=== PATIENT | female | born 1995 | race Caucasian/White ===

== ENCOUNTER 2018-03-27 02:36 | Inpatient (IN) | payer MEDICAID, BC ==
[2018-03-27 04:17] LABS: ADD MAN DIFF? NO
[2018-03-27 04:19] LABS: ABNORMAL IP MESSAGE 1; BASOPHIL # 0.1 10^3/ul (0.0-0.1); BASOPHILS % 0.4 % (0.0-2.0); EOSINOPHILS # 0.1 10^3/ul (0.0-0.5); EOSINOPHILS % 0.5 % (0.0-7.0); HEMATOCRIT 38.6 % (37.0-47.0); HEMOGLOBIN 13.6 g/dl (12.0-16.0); LYMPHOCYTES # 2.4 10^3/ul (0.8-2.9); MEAN CORPUSCULAR HEMOGLOBIN 32.1 pg (29.0-33.0); MEAN CORPUSCULAR HGB CONC 35.2 g/dl (32.0-37.0); MEAN PLATELET VOLUME 10.2 fl (7.4-10.4); MONOCYTE # 1.6 10^3/ul (0.3-0.9); MONOCYTES % 7.5 % (0.0-11.0); NEUTROPHIL # 17.5 10^3/ul (1.6-7.5); NEUTROPHILS % 79.6 % (39.0-77.0); PLATELET COUNT 262 10^3/UL (140-415); RED BLOOD COUNT 4.24 10^6/ul (4.20-5.40); RED CELL DISTRIBUTION WIDTH 11.4 % (11.5-14.5)
[2018-03-27 04:34] LABS: ALANINE AMINOTRANSFERASE 17 IU/L (13-69); ALBUMIN 3.8 g/dl (3.3-4.9); ALBUMIN/GLOBULIN RATIO 1.15; ALKALINE PHOSPHATASE 107 IU/L (42-121); ANION GAP 12 (5-13); ASPARTATE AMINO TRANSFERASE 24 IU/L (15-46); BILIRUBIN,INDIRECT 0.3 mg/dl (0-1.1); BILIRUBIN,TOTAL 0.3 mg/dl (0.2-1.3); BLOOD UREA NITROGEN 11 mg/dl (7-20); CARBON DIOXIDE 31 mmol/L (21-31); CHLORIDE 97 mmol/L (97-110); CREATININE 0.69 mg/dl (0.44-1.00); Estimated GFR > 60 mL/min (>60); GLUCOSE 80 mg/dl (70-220); LIPASE 16 U/L (23-300); POTASSIUM 3.5 mmol/L (3.5-5.1); SODIUM 140 mmol/L (135-144); TOTAL PROTEIN 7.1 g/dl (6.1-8.1)
[2018-03-27 04:42] LABS: POSITIVE DIFF @See below
[2018-03-27] MEDS: PIPER-TAZO 3.375 GM IV (PMX) 100 ML IVPB ×3 (04:42→17:32)
[2018-03-27] MEDS: VANCOMYCIN 1 GM (PMX) 250 ML IVPB (04:43)
[2018-03-27] MEDS: SOD CHLORIDE 0.9% 1,000 ML IV ×3 (04:43→07:22)
[2018-03-27] MEDS: morphine 2 MG INJ IV ×3 (05:54→18:49)
[2018-03-27] MEDS: ONDANSETRON 4 MG INJ IV (05:54)
[2018-03-27] MEDS ORDERED: VANCOMYCIN IV PER PHARMACY XX (06:00)
[2018-03-27] MEDS ORDERED: ONDANSETRON 4 MG INJ IV (06:00)
[2018-03-27] MEDS ORDERED: NACL 0.9% 3 ML SYG IV (06:00)
[2018-03-27] MEDS ORDERED: HYDROCODONE/APAP (5/325) TAB PO (06:00)
[2018-03-27 06:15] LABS: URINE BLOOD (Dip) POC Trace-lysed (NEGATIVE); URINE GLUCOSE (Dip) POC Negative (NEGATIVE); URINE KETONES (Dip) POC Negative (NEGATIVE); URINE LEUKOCYTE EST (Dip) POC Negative (NEGATIVE); URINE NITRITE (Dip) POC Negative (NEGATIVE); URINE TOTAL PROTEIN POC 1+ (NEGATIVE)
[2018-03-27 06:37] LABS: ADD UMIC YES; UR ASCORBIC ACID NEGATIVE (NEGATIVE); UR BILIRUBIN (Dip) NEGATIVE (NEGATIVE); UR BLOOD (Dip) 1+ mg/dL (NEGATIVE); UR CLARITY CLEAR (CLEAR); UR COLOR YELLOW (YELLOW); UR GLUCOSE (Dip) NEGATIVE (NEGATIVE); UR KETONES (Dip) NEGATIVE (NEGATIVE); UR LEUKOCYTE ESTERASE (Dip) NEGATIVE Leu/ul (NEGATIVE); UR NITRITE (Dip) NEGATIVE (NEGATIVE); UR RBC 3 /HPF (0-5); UR SPECIFIC GRAVITY (Dip) 1.016 (1.003-1.030); UR TOTAL PROTEIN (Dip) NEGATIVE (NEGATIVE); UR UROBILINOGEN (Dip) NEGATIVE (NEGATIVE); UR WBC 3 /HPF (0-5)
[2018-03-27 07:21] LABS: BARBITURATES Negative (NEGATIVE); BENZODIAZEPINES Negative (NEGATIVE); CANNABINOIDS Positive (NEGATIVE); COCAINE Negative (NEGATIVE); OPIATES Negative (NEGATIVE)
[2018-03-27 07:47] LABS: AMPHETAMINE/METHAMPHETAMINE POSITIVE (NEGATIVE)
[2018-03-27] MEDS: ACETAMINOPHEN 325 MG TAB PO (09:10)
[2018-03-27] MEDS: VANCOMYCIN 1 GM 250 ML IVPB ×2 (12:47→21:12)
== END 2018-03-27 22:50 | disposition left against medical advice (07) | DRG 832 ==
LOC: PP2 09:34 → E/R 02:36 → PP2 05:40
DX: O99.321 Drug use complicating pregnancy, first trimester (principal); L03.211 Cellulitis of face; O26.891 Other specified pregnancy related conditions, first trimester; F15.90 Other stimulant use, unspecified, uncomplicated; Z3A.01 Less than 8 weeks gestation of pregnancy
CPT/HCPCS: 36415; 80053; 80307; 81001; 81003; 81025; 83605; 83690; 84703; 85025; 87040; 96374; 96375; 99285-25

== ENCOUNTER 2018-03-28 00:48 | Inpatient (IN) | payer MEDICAID ==
[2018-03-28 01:59] LABS: ADD MAN DIFF? NO
[2018-03-28] MEDS ORDERED: ACETAMINOPHEN 325 MG TAB PO (02:00)
[2018-03-28] MEDS ORDERED: morphine 2 MG INJ IV (02:00)
[2018-03-28] MEDS ORDERED: VANCOMYCIN IV PER PHARMACY XX (02:00)
[2018-03-28] MEDS ORDERED: NACL 0.9% 3 ML SYG IV (02:00)
[2018-03-28 02:01] LABS: WHITE BLOOD COUNT 17.4 10^3/ul (4.8-10.8)
[2018-03-28 02:01] LABS: BASOPHIL # 0.1 10^3/ul (0.0-0.1); BASOPHILS % 0.4 % (0.0-2.0); EOSINOPHILS # 0.2 10^3/ul (0.0-0.5); EOSINOPHILS % 1.1 % (0.0-7.0); HEMOGLOBIN 12.8 g/dl (12.0-16.0); LYMPHOCYTES # 1.5 10^3/ul (0.8-2.9); LYMPHOCYTES % 8.4 % (15.0-51.0); MEAN CORPUSCULAR HEMOGLOBIN 31.8 pg (29.0-33.0); MEAN CORPUSCULAR HGB CONC 34.6 g/dl (32.0-37.0); MEAN PLATELET VOLUME 9.8 fl (7.4-10.4); MONOCYTES % 5.6 % (0.0-11.0); NEUTROPHIL # 14.6 10^3/ul (1.6-7.5); NEUTROPHILS % 83.8 % (39.0-77.0); PLATELET COUNT 286 10^3/UL (140-415); RED BLOOD COUNT 4.02 10^6/ul (4.20-5.40); RED CELL DISTRIBUTION WIDTH 11.6 % (11.5-14.5)
[2018-03-28 02:19] LABS: ALANINE AMINOTRANSFERASE 16 IU/L (13-69); ALBUMIN 3.6 g/dl (3.3-4.9); ALBUMIN/GLOBULIN RATIO 1.09; ALKALINE PHOSPHATASE 128 IU/L (42-121); ANION GAP 11 (5-13); ASPARTATE AMINO TRANSFERASE 25 IU/L (15-46); BILIRUBIN,INDIRECT 0.2 mg/dl (0-1.1); BILIRUBIN,TOTAL 0.2 mg/dl (0.2-1.3); BLOOD UREA NITROGEN 7 mg/dl (7-20); CALCIUM 8.8 mg/dl (8.4-10.2); CARBON DIOXIDE 27 mmol/L (21-31); CHLORIDE 99 mmol/L (97-110); CREATININE 0.56 mg/dl (0.44-1.00); Estimated GFR > 60 mL/min (>60); GLUCOSE 80 mg/dl (70-220); LIPASE 13 U/L (23-300); POTASSIUM 3.8 mmol/L (3.5-5.1); SODIUM 137 mmol/L (135-144); TOTAL PROTEIN 6.9 g/dl (6.1-8.1)
[2018-03-28 02:21] LABS: INR 0.99; PROTIME 13.2 Sec (11.9-14.9)
[2018-03-28 02:22] LABS: PARTIAL THROMBOPLASTIN TIME 37.1 Sec (23.0-35.0)
[2018-03-28] MEDS: PIPER-TAZO 3.375 GM IV (PMX) 100 ML IVPB ×4 (02:58→18:22)
[2018-03-28] MEDS: SOD CHLORIDE 0.9% 1,000 ML IV (02:59)
[2018-03-28] MEDS: morphine 4 MG/ML VIAL IV ×3 (05:04→20:18)
[2018-03-28] MEDS: VANCOMYCIN 1 GM in 250 ML IVPB (06:19)
[2018-03-28] MEDS: VANCOMYCIN 750 MG (PMX) 250 ML IVPB ×2 (11:46→20:18)
[2018-03-28] MEDS ORDERED: HYDROCODONE/APAP (10/325) TAB PO (17:00)
[2018-03-28 18:45] LABS: VANCOMYCIN,TROUGH 15.3 ug/ml (10.0-20.0)
[2018-03-29] MEDS: PIPER-TAZO 3.375 GM IV (PMX) 100 ML IVPB ×4 (00:06→17:24)
[2018-03-29] MEDS: morphine 4 MG/ML VIAL IV ×3 (00:24→16:22)
[2018-03-29] MEDS: SOD CHLORIDE 0.9% 1,000 ML IV (01:54)
[2018-03-29] MEDS: VANCOMYCIN 750 MG (PMX) 250 ML IVPB ×2 (03:19→11:07)
[2018-03-29] MEDS ORDERED: DIPHENHYDRAMINE 25 MG CAP PO (04:00)
[2018-03-29 04:56] LABS: ADD MAN DIFF? NO
[2018-03-29 04:59] LABS: WHITE BLOOD COUNT 9.4 10^3/ul (4.8-10.8)
[2018-03-29 04:59] LABS: BASOPHILS % 0.3 % (0.0-2.0); EOSINOPHILS # 0.2 10^3/ul (0.0-0.5); EOSINOPHILS % 2.5 % (0.0-7.0); HEMATOCRIT 36.7 % (37.0-47.0); HEMOGLOBIN 12.5 g/dl (12.0-16.0); LYMPHOCYTES # 2.8 10^3/ul (0.8-2.9); LYMPHOCYTES % 29.5 % (15.0-51.0); MEAN CORPUSCULAR HEMOGLOBIN 31.5 pg (29.0-33.0); MEAN CORPUSCULAR HGB CONC 34.1 g/dl (32.0-37.0); MEAN CORPUSCULAR VOLUME 92.4 fl (82.0-101.0); MEAN PLATELET VOLUME 9.9 fl (7.4-10.4); MONOCYTE # 0.9 10^3/ul (0.3-0.9); MONOCYTES % 9.4 % (0.0-11.0); NEUTROPHIL # 5.4 10^3/ul (1.6-7.5); NEUTROPHILS % 57.9 % (39.0-77.0); PLATELET COUNT 314 10^3/UL (140-415); RED BLOOD COUNT 3.97 10^6/ul (4.20-5.40); RED CELL DISTRIBUTION WIDTH 11.7 % (11.5-14.5)
[2018-03-29 05:24] LABS: ALANINE AMINOTRANSFERASE 18 IU/L (13-69); ALBUMIN 3.3 g/dl (3.3-4.9); ALBUMIN/GLOBULIN RATIO 1.06; ALKALINE PHOSPHATASE 124 IU/L (42-121); ANION GAP 7 (5-13); ASPARTATE AMINO TRANSFERASE 25 IU/L (15-46); BLOOD UREA NITROGEN 9 mg/dl (7-20); CALCIUM 8.7 mg/dl (8.4-10.2); CARBON DIOXIDE 28 mmol/L (21-31); CHLORIDE 102 mmol/L (97-110); CREATININE 0.66 mg/dl (0.44-1.00); Estimated GFR > 60 mL/min (>60); GLUCOSE 96 mg/dl (70-220); MAGNESIUM 1.9 mg/dl (1.7-2.5); PHOSPHORUS 3.8 mg/dl (2.5-4.9); POTASSIUM 4.2 mmol/L (3.5-5.1); SODIUM 137 mmol/L (135-144); TOTAL PROTEIN 6.4 g/dl (6.1-8.1)
[2018-03-29] MEDS: LACTOBACILLUS RHAMNOSUS CAP PO ×2 (09:14→21:00)
[2018-03-29] MEDS ORDERED: LORAZEPAM 2 MG INJ IV (14:30)
[2018-03-29 19:46] LABS: VANCOMYCIN,TROUGH 7.5 ug/ml (10.0-20.0)
[2018-03-29] MEDS: VANCOMYCIN 1 GM 250 ML IVPB (20:40)
[2018-03-29] MEDS: HYDROCODONE/APAP (5/325) TAB PO (23:11)
[2018-03-30] MEDS: PIPER-TAZO 3.375 GM IV (PMX) 100 ML IVPB ×5 (00:22→23:05)
[2018-03-30] MEDS: VANCOMYCIN 1 GM 250 ML IVPB ×3 (03:13→20:39)
[2018-03-30] MEDS: HYDROCODONE/APAP (5/325) TAB PO (05:30)
[2018-03-30] MEDS: morphine 4 MG/ML VIAL IV (10:14)
[2018-03-30] MEDS: ENOXAPARIN 40 MG/0.4 ML SYG SC (10:16)
[2018-03-30] MEDS: DOCUSATE SODIUM 100 MG CAP PO (12:27)
[2018-03-31 03:38] LABS: VANCOMYCIN,TROUGH 14.8 ug/ml (10.0-20.0)
[2018-03-31] MEDS: VANCOMYCIN 1 GM 250 ML IVPB ×3 (04:05→20:01)
[2018-03-31] MEDS: PIPER-TAZO 3.375 GM IV (PMX) 100 ML IVPB ×4 (06:11→23:15)
[2018-03-31] MEDS: DOCUSATE SODIUM 100 MG CAP PO (11:22)
[2018-03-31] MEDS ORDERED: BISACODYL (EC) 5 MG TAB PO (15:30)
[2018-03-31] MEDS: LIDOCAINE 1% (MPF) 5 ML VIAL SC (15:30)
[2018-03-31] MEDS ORDERED: POLYETHYLENE GLYCOL 17 GM PACKET PO (15:30)
[2018-03-31] MEDS ORDERED: BISACODYL 10 MG SUPP PR (15:30)
[2018-03-31] MEDS: MAGNESIUM HYDROXIDE 30ML CUP PO (15:36)
[2018-03-31] MEDS: HYDROCODONE/APAP (5/325) TAB PO (19:59)
[2018-04-01] MEDS: VANCOMYCIN 1 GM 250 ML IVPB ×3 (04:04→20:02)
[2018-04-01] MEDS: PIPER-TAZO 3.375 GM IV (PMX) 100 ML IVPB ×4 (06:18→23:02)
[2018-04-01 06:26] LABS: ADD MAN DIFF? NO
[2018-04-01 06:28] LABS: BASOPHIL # 0.1 10^3/ul (0.0-0.1); BASOPHILS % 0.6 % (0.0-2.0); EOSINOPHILS # 0.1 10^3/ul (0.0-0.5); EOSINOPHILS % 0.8 % (0.0-7.0); HEMATOCRIT 36.3 % (37.0-47.0); HEMOGLOBIN 12.7 g/dl (12.0-16.0); LYMPHOCYTES # 2.1 10^3/ul (0.8-2.9); LYMPHOCYTES % 18.9 % (15.0-51.0); MEAN CORPUSCULAR HEMOGLOBIN 31.8 pg (29.0-33.0); MEAN PLATELET VOLUME 9.2 fl (7.4-10.4); MONOCYTE # 0.8 10^3/ul (0.3-0.9); MONOCYTES % 7.3 % (0.0-11.0); NEUTROPHIL # 7.9 10^3/ul (1.6-7.5); NEUTROPHILS % 71.4 % (39.0-77.0); PLATELET COUNT 320 10^3/UL (140-415); RED BLOOD COUNT 3.99 10^6/ul (4.20-5.40); RED CELL DISTRIBUTION WIDTH 11.3 % (11.5-14.5)
[2018-04-01 06:46] LABS: ALANINE AMINOTRANSFERASE 22 IU/L (13-69); ALBUMIN 3.2 g/dl (3.3-4.9); ALKALINE PHOSPHATASE 99 IU/L (42-121); ANION GAP 6 (5-13); ASPARTATE AMINO TRANSFERASE 22 IU/L (15-46); BLOOD UREA NITROGEN 13 mg/dl (7-20); CALCIUM 8.5 mg/dl (8.4-10.2); CARBON DIOXIDE 26 mmol/L (21-31); CHLORIDE 106 mmol/L (97-110); CREATININE 0.78 mg/dl (0.44-1.00); Estimated GFR > 60 mL/min (>60); GLUCOSE 102 mg/dl (70-220); POTASSIUM 3.8 mmol/L (3.5-5.1); SODIUM 138 mmol/L (135-144); TOTAL PROTEIN 6.4 g/dl (6.1-8.1)
[2018-04-01] MEDS: PRENATAL VITAMIN PO (17:10)
[2018-04-01] MEDS: HYDROCODONE/APAP (5/325) TAB PO (20:03)
[2018-04-02] MEDS: VANCOMYCIN 1 GM 250 ML IVPB ×2 (03:19→11:38)
[2018-04-02] MEDS: PIPER-TAZO 3.375 GM IV (PMX) 100 ML IVPB ×2 (05:33→11:01)
[2018-04-02] MEDS: PRENATAL VITAMIN PO (08:14)
[2018-04-02 08:28] LABS: ADD MAN DIFF? NO
[2018-04-02 08:38] LABS: WHITE BLOOD COUNT 11.3 10^3/ul (4.8-10.8)
[2018-04-02 08:38] LABS: BASOPHIL # 0.1 10^3/ul (0.0-0.1); BASOPHILS % 0.5 % (0.0-2.0); EOSINOPHILS # 0.4 10^3/ul (0.0-0.5); EOSINOPHILS % 3.8 % (0.0-7.0); HEMATOCRIT 37.9 % (37.0-47.0); HEMOGLOBIN 13.1 g/dl (12.0-16.0); LYMPHOCYTES # 2.6 10^3/ul (0.8-2.9); LYMPHOCYTES % 22.5 % (15.0-51.0); MEAN CORPUSCULAR HEMOGLOBIN 31.8 pg (29.0-33.0); MEAN CORPUSCULAR HGB CONC 34.6 g/dl (32.0-37.0); MEAN PLATELET VOLUME 9.1 fl (7.4-10.4); MONOCYTE # 0.9 10^3/ul (0.3-0.9); NEUTROPHIL # 7.2 10^3/ul (1.6-7.5); NEUTROPHILS % 63.9 % (39.0-77.0); PLATELET COUNT 355 10^3/UL (140-415); RED BLOOD COUNT 4.12 10^6/ul (4.20-5.40); RED CELL DISTRIBUTION WIDTH 11.5 % (11.5-14.5)
[2018-04-02 08:56] LABS: MAGNESIUM 1.9 mg/dl (1.7-2.5)
[2018-04-02 08:56] LABS: PHOSPHORUS 4.1 mg/dl (2.5-4.9)
[2018-04-02 09:00] LABS: ANION GAP 13 (5-13); BLOOD UREA NITROGEN 6 mg/dl (7-20); CALCIUM 8.5 mg/dl (8.4-10.2); CARBON DIOXIDE 25 mmol/L (21-31); CHLORIDE 102 mmol/L (97-110); CREATININE 0.71 mg/dl (0.44-1.00); Estimated GFR > 60 mL/min (>60); GLUCOSE 86 mg/dl (70-220); POTASSIUM 3.8 mmol/L (3.5-5.1); SODIUM 140 mmol/L (135-144)
[2018-04-02] MEDS: CEPHALEXIN 500 MG CAP PO (15:54)
== END 2018-04-02 15:50 | disposition home or self-care (01) | DRG 831 ==
LOC: E/R 00:48 → 5EC 04:30
DX: O98.811 Other maternal infectious and parasitic diseases complicating pregnancy, first trimester (principal); A41.9 Sepsis, unspecified organism; L03.211 Cellulitis of face; O99.321 Drug use complicating pregnancy, first trimester; O99.331 Smoking (tobacco) complicating pregnancy, first trimester; F17.200 Nicotine dependence, unspecified, uncomplicated; L27.0 Generalized skin eruption due to drugs and medicaments taken internally; F12.10 Cannabis abuse, uncomplicated; Z3A.01 Less than 8 weeks gestation of pregnancy; F15.188 Other stimulant abuse with other stimulant-induced disorder; T43.625A Adverse effect of amphetamines, initial encounter; Z91.19 Patient's noncompliance with other medical treatment and regimen
CPT/HCPCS: 36415; 36569; 71045; 76801; 76817; 80048; 80053; 80202; 83690; 83735; 84100; 85025; 85610; 85730; 87070; 87081; 99285-25